=== PATIENT | female | born 1945 | race Two or more races ===

== ENCOUNTER 2020-10-05 18:15 | Emergency (ER) | payer BC ==
[~2020-10-05] VITALS: Ht 167.6 cm; Wt 70.3 kg
[2020-10-05] MEDS ORDERED: ONDANSETRON 4 MG TAB.RAPDIS ONE (19:56)
[2020-10-05 19:58] LABS: BASOPHILS % (AUTO) 1.3 % (0.0-2.0); EOSINOPHILS % (AUTO) 1.7 % (0.0-6.0); HEMATOCRIT 43 % (33-45); HEMOGLOBIN 14.1 g/dL (11.5-14.8); LYMPHOCYTES # (AUTO) 1.6 /CMM (0.8-4.8); LYMPHOCYTES % (AUTO) 46.7 % (20.0-44.0); MEAN CORPUSCULAR HGB CONC 33 g/dl (31.0-36.0); MEAN CORPUSCULAR VOLUME 92 fL (82-100); MONOCYTES # (AUTO) 0.3 /CMM (0.1-1.30); NEUTROPHILS # (AUTO) 1.5 /CMM (1.8-8.9); NEUTROPHILS % (AUTO) 42.3 % (43.0-81.0); PLATELET COUNT (AUTO) 156 /CMM (150-450); RED BLOOD CELL COUNT(AUTO) 4.63 MIL/uL (4.0-5.2); WHITE BLOOD COUNT (AUTO) 3.4 K/uL (4.3-11.0)
[2020-10-05] MEDS ORDERED: ONDANSETRON 4 MG TAB.RAPDIS SL ONE (20:00)
[2020-10-05 20:07] LABS: CALCIUM, SERUM 8.8 mg/dL (8.5-10.1); CREATININE 0.9 mg/dL (0.6-1.3); POTASSIUM 3.9 mmol/L (3.5-5.1)
[2020-10-05 20:12] LABS: ALBUMIN 3.5 g/dL (3.4-5.0); BILIRUBIN,DIRECT 0.1 mg/dL (0.0-0.2); BILIRUBIN,TOTAL 0.4 mg/dL (0.2-1.0); TOTAL PROTEIN, SERUM 7.4 g/dL (6.4-8.2)
--- NOTE | 2020-10-05 20:21 | NUR ---
Note darronone in EDM - 10/05/20 at 2041 by EVICTOR PT AAOX4. AMBULATORY WITH STEADY GAIT. BIB DAUGHTER C/O CONSTIPATION AND NAUSEA X4 DAYS. PLACED ON MONITOR AND PULSE OX. AWAITING FOR EVAL AND ORDERS.
--- NOTE | 2020-10-05 20:29 | NUR ---
TO ER BED 10 AMBULATORY BIB DAUGHTER C/O CONSTIPATION WITH NAUSEA X4 DAYSPT AAOX4. AMBULATORY WITH STEADY GAIT. PLACED ON MONITOR AND PULSE OX. PT SEEN AND EVALUATED BY ER MD WITH ORDERS RECIVED. WILL CARRY OUT ORDERS.
--- NOTE | 2020-10-05 20:36 | NUR ---
PT TRANSPORTED TO RADIOLOGY FOR CT ABD/PELVIS WITH IV CONTRAST
--- NOTE | 2020-10-05 20:41 | NUR ---
[place] cody in ED - 10/05/20 at 2042 by CARLOR BROUGHT TO CT
[2020-10-05] MEDS ORDERED: IOHEXOL-300 100 ML VIAL IV ONE (20:42)
[2020-10-05] MEDS ORDERED: IV NS 0.9% 250 ML IV ONE (20:42)
[2020-10-05] MEDS ORDERED: IV NS 0.9% 1,000 ML BAG IV ONE (21:00)
[2020-10-05] MEDS ORDERED: ONDANSETRON HCL/PF - ER 4 MG/2 ML VIAL IV ONE (21:00)
--- NOTE | 2020-10-05 21:32 | NUR ---
PT MEDICATED ORDERED.
[2020-10-05] MEDS ORDERED: ONDANSETRON HCL/PF 4 MG/2 ML VIAL ONE (21:37)
--- NOTE | 2020-10-05 21:55 | NUR ---
COVDI SWAB COLLECTED AND SENT TO LAB.
--- NOTE | 2020-10-05 22:41 | NUR ---
IV removed. Catheter intact and site benign. Pressure and 4x4 applied to site. No bleeding noted. Patient discharged to home in stable condition. Written and verbal after care instructions given. Patient verbalizes understanding of instruction. ambulatory with a steady gait noted pt [id number] no acute distress noted, resp even and unlabored. pt denies pain or discomfort at this time. pt denies n/v at this time.
[2020-10-05 22:42] VITALS: BP 149/86
--- NOTE | 2020-10-05 23:03 | NUR ---
COVID POSITIVE PER LAB
== END 2020-10-05 22:43 | disposition home or self-care (01) ==
LOC: ER 18:21
DX: U07.1 COVID-19 (principal); R11.2 Nausea with vomiting, unspecified; J98.11 Atelectasis; K59.00 Constipation, unspecified; R91.8 Other nonspecific abnormal finding of lung field; K76.0 Fatty (change of) liver, not elsewhere classified; R94.31 Abnormal electrocardiogram [ECG] [EKG]; J44.9 Chronic obstructive pulmonary disease, unspecified; I11.9 Hypertensive heart disease without heart failure; Z86.73 Personal history of transient ischemic attack (TIA), and cerebral infarction without residual deficits; F17.200 Nicotine dependence, unspecified, uncomplicated; Z82.49 Family history of ischemic heart disease and other diseases of the circulatory system; S42.91XD Fracture of right shoulder girdle, part unspecified, subsequent encounter for fracture with routine healing; X58.XXXD Exposure to other specified factors, subsequent encounter; K57.90 Diverticulosis of intestine, part unspecified, without perforation or abscess without bleeding
CPT/HCPCS: 36415; 71045; 74177; 80048; 80076; 83690; 84484; 85025; 87426; 93005; 96361; 96374; 99285; C9803 ×2; J2405 ×2; J7030; J7050; Q0162; Q9967; U0003